=== PATIENT | female | born 1955 | race Caucasian/White ===

== ENCOUNTER 2021-07-12 12:47 | Day surgery (SDCO) | payer MEDICARE ==
[~2021-07-12] VITALS: Ht 160 cm; Wt 75.4 kg
[~2021-07-12 12:47] MED LIST: ULTRAM50 MG PO; ZOFRAN8 MG PO
[2021-07-12 13:33] LABS: BASOPHIL 0.9 % (0-2); EOSINOPHIL 2.1 % (0-7); HCT 41.8 % (37.0-47.0); HGB 13.6 g/dl (12.5-16.0); MCH 30.7 pg (25.0-31.0); MCHC 32.5 g/dL (32.0-36.0); MCV 94.4 fL (78.0-100.0); MONOCYTE 9.8 % (0-12); MPV 9.9 fL (6.0-9.5); NRBC 0; PLT 313 K/uL (150-400); RBC 4.43 M/uL (4.20-5.40); RDW 12.8 % (11.5-14.0); WBC 5.6 K/uL (4.0-10.5)
[2021-07-12 13:48] LABS: INR 1.02 (0.9-1.2); PROTHROMBIN TIME 12.8 SECONDS (11.8-13.4); PTT 33.2 SECONDS (24.4-34.7)
[2021-07-12 13:49] LABS: D-DIMER < 0.27 ug/mLFEU (0.00-0.41)
[2021-07-12 13:53] LABS: ALBUMIN 3.7 g/dL (3.4-5.0); BILIRUBIN - TOTAL 0.2 mg/dL (0.2-1.0); BUN/CREAT RATIO (CALC) 8.4 RATIO; CREATININE 0.83 mg/dL (0.51-0.95); GLOBULIN (CALCULATION) 3.5 g/dL; MAGNESIUM 1.9 mg/dL (1.8-2.4); POTASSIUM 4.3 mmol/L (3.5-5.1); TOTAL PROTEIN 7.2 g/dL (6.4-8.2)
[2021-07-12 14:05] LABS: BILIRUBIN NEGATIVE (NEGATIVE); BLOOD NEGATIVE Ery/uL (NEGATIVE); CLARITY CLEAR (CLEAR); COLOR YELLOW (YELLOW); GLUCOSE (U) NORMAL (NORMAL); LEUKOCYTES 1+ Leu/uL (NEGATIVE); NITRITE NEGATIVE (NEGATIVE); PROTEIN NEGATIVE (NEGATIVE); SPECIFIC GRAVITY <=1.005 (1.001-1.030); UROBILINOGEN 0.2 mg/dL (0.2-1.0)
[2021-07-12 14:15] LABS: BACTERIA TRACE; URINARY RBC RARE
[2021-07-13] MEDS ORDERED: BISOPROLOL FUMAR5 MG PO (04:49)
[2021-07-13] MEDS ORDERED: ARMOUR THYROID90 MG PO (04:49)
[2021-07-13] MEDS ORDERED: ASPIRIN EC81 MG PO (04:49)
[2021-07-13] MEDS ORDERED: COQ-1030 MG PO (04:50)
[2021-07-13] MEDS ORDERED: VOLTAREN **OUT50 MG PO (04:50)
[2021-07-13] MEDS ORDERED: BONIVA 150MG T150 MG PO (04:52)
[2021-07-13] MEDS ORDERED: ADALAT CC30 MG PO (04:52)
[2021-07-13] MEDS ORDERED: PRILOSEC20 MG PO (04:52)
[2021-07-13] MEDS ORDERED: CRESTOR5 MG PO (04:53)
[2021-07-13] MEDS ORDERED: TYLENOL PM EX-1 EACH PO (04:53)
[2021-07-13] MEDS ORDERED: VITAMIN D350 MC4 PO (04:54)
[2021-07-13] MEDS ORDERED: NITROQUIK SL0.4 MG SL (04:55)
[2021-07-13 06:51] LABS: BASOPHIL 1.1 % (0-2); EOSINOPHIL 3.3 % (0-7); HCT 39.2 % (37.0-47.0); HGB 12.6 g/dl (12.5-16.0); LYMPHOCYTE 43.4 % (15-48); MCH 30.4 pg (25.0-31.0); MCHC 32.1 g/dL (32.0-36.0); MCV 94.7 fL (78.0-100.0); MONOCYTE 11.3 % (0-12); MPV 9.6 fL (6.0-9.5); NEUTROPHIL 40.7 % (41-80); NRBC 0; PLT 257 K/uL (150-400); RBC 4.14 M/uL (4.20-5.40); RDW 12.9 % (11.5-14.0); WBC 4.6 K/uL (4.0-10.5)
[2021-07-13 07:02] LABS: INR 1.06 (0.9-1.2); PROTHROMBIN TIME 13.2 SECONDS (11.8-13.4)
[2021-07-13 07:15] LABS: ALBUMIN 3.3 g/dL (3.4-5.0); ALKALINE PHOSHATASE 43 U/L (46-116); ALT <6 U/L (14-59); AST 14 U/L (15-37); BILIRUBIN - TOTAL 0.3 mg/dL (0.2-1.0); BUN 9 mg/dL (7-18); BUN/CREAT RATIO (CALC) 10.2 RATIO; CHLORIDE 108 mmol/L (98-107); CHOLESTEROL 174 mg/dL (<200); CO2 (BICARBONATE) 29 mmol/L (21-32); CREATININE 0.88 mg/dL (0.51-0.95); GLOBULIN (CALCULATION) 3.2 g/dL; GLUCOSE 103 mg/dL (74-106); HDL 69 mg/dL (40-60); LDL - DIRECT 74 mg/dL (<100); PHOSPHORUS 3.7 mg/dL (2.6-4.7); POTASSIUM 4.5 mmol/L (3.5-5.1); TOTAL PROTEIN 6.5 g/dL (6.4-8.2); TRIGLYCERIDES 182 mg/dL (<150)
[2021-07-13 07:21] LABS: FT4 (FREE T4) 0.7 ng/dL (0.76-1.46)
[2021-07-13 07:29] LABS: CKMB <0.5 ng/mL (0.0-3.6)
[2021-07-13] MEDS ORDERED: ISOSORBIDE MONO30 MG PO (12:09)
--- NOTE | 2021-07-13 12:17 | NUR ---
PER ELSA PENA, PT. MAY D/C HOME THIS DATE. IF SHE TOLERATES HER NEW MEDICATION.
[2021-07-13] MEDS ORDERED: CEFDINIR300 MG PO (12:22)
== END 2021-07-13 14:25 | disposition home or self-care (01) ==
LOC: FER 12:47 → FMS 07-13 03:26
PROVIDERS: Emergency Medicine; Nurse Practitioner; ADMIT Internal Medicine
DX: R07.9 Chest pain, unspecified (principal); N30.00 Acute cystitis without hematuria; E03.9 Hypothyroidism, unspecified; I25.10 Atherosclerotic heart disease of native coronary artery without angina pectoris; I10 Essential (primary) hypertension; E78.5 Hyperlipidemia, unspecified; K21.9 Gastro-esophageal reflux disease without esophagitis; Z20.822 Contact with and (suspected) exposure to COVID-19; Z79.899 Other long term (current) drug therapy; Z88.5 Allergy status to narcotic agent; Z88.8 Allergy status to other drugs, medicaments and biological substances; Z90.710 Acquired absence of both cervix and uterus
CPT/HCPCS: 36415; 71045; 80053; 80061; 81001; 82553; 83735; 84100; 84439; 84443; 84484; 85025; 85379; 85610; 85730; 87088; 93005; G0378; J0696; J1650; U0002